=== PATIENT | female | born 1940 | race Caucasian/White ===

== ENCOUNTER → 2018-02-25 14:46 | Outpatient (CLI) | payer MEDICARE, OTHER, SELFPAY ==
[2018-02-25 17:58] LABS: CRP < 2.90 mg/L (0.0-3.0)
[2018-03-02 16:12] LABS: Endomysial Antibody IgA Negative (Negative)
[2018-03-03 17:12] LABS: Immunoglobulin A 111 mg/dL (64-422); t-Transglutaminase IgA <2 U/mL (0-3)
== END ==
PROVIDERS: Family Provider Family Medicine; PCP Family Medicine; Visit Provider Internal Medicine Gastroenterology
DX: R19.7 Diarrhea, unspecified (principal)
CPT/HCPCS: 36415; 82784; 83516; 86140; 86255

== ENCOUNTER 2023-09-27 07:58 | Day surgery (SDC) | payer MEDICARE, SELFPAY ==
[2023-09-27 08:39] VITALS: BP 159/62; PULSE 59; RESP 16; TEMP 36.1; O2SAT 100; BMI 30.7
[2023-09-27] MEDS: Lactated Ringers 1,000 ML 15 ML IV (08:48)
--- NOTE | 2023-09-27 09:31 | RAD_ITS ---
PROCEDURE: T8-T9 epidural injection. DATE OF EXAMINATION: September 27, 2023. INDICATION: Female, 83 years old. Back pain. FLUOROSCOPY TIME (if supplied): (10 seconds) minutes/seconds. 5.1 mGy. 4 spot images were obtained. RAD/Spine 1 View Any Level IMPRESSION: Intraoperative imaging provided for T8-T9 epidural injection. Electronically Signed: Anjel Cason MD at 12:15 EST ,
[2023-09-27] MEDS: MethylPREDNISolone Acetate 80 MG/ML Vial (09:36)
--- NOTE | 2023-09-27 09:38 | OP.PCM_ITS ---
Report of Operation Date of Procedure: 09/27/23 Description of Surgical Findings:: PREOPERATIVE DIAGNOSES: Thoracic radiculopathy, thoracic degenerative disc disease, thoracic spinal stenosis POSTOPERATIVE DIAGNOSES: Thoracic radiculopathy, thoracic degenerative disc disease, thoracic spinal stenosis PROCEDURE PERFORMED: Thoracic epidural steroid injection interlaminar at T8-9 under fluoroscopic guidance ANESTHESIA: MAC BLOOD LOSS: Minimal. COMPLICATIONS: None. DESCRIPTION OF PROCEDURE: History and physical of today was reviewed. Risks and benefits of the procedure were explained. The patient understood and agreed to proceed. Informed consent was obtained. IV inserted per routine protocol. The patient was taken to the operating room and placed in the prone position with a pillow positioned underneath the chest. The mid back area was prepped and draped in a sterile fashion using iodine x3. Under fluoroscopy guidance on an AP view, the T8-9 interlaminar space was identified. The skin and subcutaneous tissue was anesthetized with approximately 3 mL of 1% lidocaine using a 25-gauge regular needle. Under direct visualization on fluoroscopy, on AP view, using a 20-gauge 3-1/2-inch Tuohy needle, the needle was advanced via the skin. The tip of the needle was maneuvered and directed towards the interlaminar space at T8-9 loss of resistance technique was carried to air. Loss of resistance technique was encountered. Once encountered, after negative aspiration for blood and CSF, a total of 3 mL of contrast was injected to confirm correct placement of the needle as well as cephalocaudal spread of the contrast. Confirmation was obtained on AP as well as lateral view. After repeated negative aspiration and confirmation, a total of 6 mL of preservative- free normal saline and 80 mg of Depo-Medrol was injected easily. The needle was then removed intact. The patient experienced no sign or symptoms of intrathecal or intravascular injection. The patient experienced no paresthesia. The procedure was completed without any apparent difficulty or any complications. The patient appeared to tolerate it well. ASSESSMENT AND PLAN: This is an 83-year-old female with thoracic radiculopathy, thoracic degenerative disc disease, thoracic spinal stenosis status post thoracic epidural steroid injection interlaminar at T8-9 under fluoroscopic guidance, patient will continue her current medications, patient will follow up in approximately 2 weeks for reevaluation.
[2023-09-27 09:45] VITALS: BP 127/62; BP 159/62; PULSE 63; RESP 16; TEMP 36.4; O2SAT 99
[2023-09-27 09:50] VITALS: BP 129/67; BP 159/62; PULSE 61; RESP 16; O2SAT 100
[2023-09-27 09:55] VITALS: BP 131/56; BP 159/62; PULSE 60; RESP 16; O2SAT 99
[2023-09-27 10:00] VITALS: BP 129/60; BP 159/62; PULSE 60; RESP 16; TEMP 36.4; O2SAT 97
[2023-09-27 10:16] VITALS: BP 159/62
== END 2023-09-27 10:37 | disposition home or self-care (01) ==
LOC: SDC 08:06 → AC 08:06
PROVIDERS: Referring Provider Family Medicine; Visit Provider Anesthesiology Pain Medicine
PROC: 3E0S3BZ Introduction of Anesthetic Agent into Epidural Space, Percutaneous Approach (ICD-10-PCS; CPT 62321; principal; 2023-09-27 09:45)
DX: M51.14 Intervertebral disc disorders with radiculopathy, thoracic region (principal); J44.9 Chronic obstructive pulmonary disease, unspecified; I27.20 Pulmonary hypertension, unspecified; M48.04 Spinal stenosis, thoracic region; E78.00 Pure hypercholesterolemia, unspecified; Z79.01 Long term (current) use of anticoagulants; Z79.899 Other long term (current) drug therapy; Z79.890 Hormone replacement therapy; Z95.0 Presence of cardiac pacemaker
CPT/HCPCS: 62321; 01992; 64490; 72020; J7120

== ENCOUNTER 2023-11-08 08:03 | Day surgery (SDC) | payer MEDICARE, SELFPAY ==
[2023-11-08] VITALS (7 sets, daily range): BP systolic 97–161; BP diastolic 62–72; PULSE 60–67; RESP 16; TEMP 36.1–36.6; O2SAT 97–100; BMI 30.3
[2023-11-08] MEDS: Lactated Ringers 1,000 ML 15 ML IV (08:25)
--- NOTE | 2023-11-08 09:50 | RAD_ITS ---
PROCEDURE: Right thoracic radiofrequency ablation. DATE OF EXAMINATION: November 08, 2023. INDICATION: Female, 83 years old. Chronic back pain. FLUOROSCOPY TIME (if supplied): (16 seconds) minutes/seconds. 3.51 mGy. 6 images were submitted. RAD/Thoracic Spine Min 4 Views IMPRESSION: Intraoperative imaging provided for right-sided thoracic radiofrequency ablation. Electronically Signed: Anjel Cason MD at 11:58 EDT ,
[2023-11-08] MEDS: Lidocaine 1% (30 ml sdv) 30 ML Vial (09:55)
[2023-11-08] MEDS: MethylPREDNISolone Acetate 40 MG/ML Vial (09:56)
--- NOTE | 2023-11-08 10:04 | OP.PCM_ITS ---
Report of Operation Date of Procedure: 11/08/23 Description of Surgical Findings:: PREOPERATIVE DIAGNOSES: 1. Thoracic spondylosis. 2. Thoracic degenerative disk disease. 3. Thoracic facet arthropathy. POSTOPERATIVE DIAGNOSES: 1. Thoracic spondylosis. 2. Thoracic degenerative disk disease. 3. Thoracic facet arthropathy. PROCEDURE PERFORMED: Right-sided thoracic radiofrequency ablation of the medial branch at T6, T7, T8, and T9 ANESTHESIA: MAC. BLOOD LOSS: Minimal. COMPLICATIONS: None. DESCRIPTION OF PROCEDURE: History and physical of today was reviewed. Risks and benefits of the procedure were explained. The patient understood and agreed to proceed. Informed consent was obtained. IV inserted per routine protocol. The patient was taken to the operating room and placed in the prone position with a pillow positioned underneath the chest. The mid back area was prepped and draped in a sterile fashion using iodine x3. Under fluoroscopy guidance in an oblique view, the T6 through T9 vertebral bodies were visualized. The skin and subcutaneous tissue was anesthetized with approximately 10 mL of 1% lidocaine using a 25-gauge regular needle. Under direct visualization on fluoroscopy at approximately 25-degree angle, starting on the right T9, ending on the right T6, passing through the T7 and T8, using a 20-gauge 10-cm with a 10 -mm curved active-tip radiofrequency ablation needle, the needle was passed through the skin. The tip of the needle was maneuvered and directed towards the epiphyseal junction of each corresponding vertebra. Once the tip of the needle was at the vicinity of the medial branch and in contact with the bone, the needle was pulled approximately 2 mm off the bone. The stylette of each needle was then removed. After negative aspiration of blood or CSF and confirmation on AP, oblique as well as lateral view, the radiofrequency ablation probe was then inserted at each level. Impedance was then recorded at T6 to be 269 ohm, at T7 to be 227 ohm, at T8 to be 252 ohm, and at T9 to be 261 ohm. Motor-evoked potential was then initiated to 2 HZ and 1.5 volts without any motor response at each corresponding level. The probe was then removed intact and a total of 6 ml of preservative-free 2% lidocaine was injected in divided doses between those four levels after negative aspiration of blood or CSF. The radiofrequency ablation probe was then reinserted. After confirmation on AP, oblique as well as lateral view, radiofrequency ablation was then initiated to 80 degree Celsius for 90 second at each level. Once concluded, the probe was then removed intact. A total of 6 ml of preservative-free 0.25% Marcaine with 40 mg of Depo-Medrol was injected in divided doses between those four levels. The needles were then removed intact. The patient experienced no sign or symptoms of intrathecal or intravascular injection. The patient experienced no paresthesia. Assessment and plan: This is an 83-year-old female with thoracic spondylosis, thoracic degenerative disc disease, thoracic facet arthropathy status post right-sided thoracic radiofrequency ablation of the medial branch at T6-T9, patient will continue her current medications, patient will follow approximately 2 weeks for reevaluation.
== END 2023-11-08 10:53 | disposition home or self-care (01) ==
LOC: SDC 08:04 → AC 08:06
PROVIDERS: Referring Provider Anesthesiology Pain Medicine; Visit Provider Anesthesiology Pain Medicine
PROC: (CPT 64633; principal; 2023-11-08 09:25)
DX: M47.24 Other spondylosis with radiculopathy, thoracic region (principal); J44.9 Chronic obstructive pulmonary disease, unspecified; M51.14 Intervertebral disc disorders with radiculopathy, thoracic region; M51.24 Other intervertebral disc displacement, thoracic region; Z79.01 Long term (current) use of anticoagulants; Z79.890 Hormone replacement therapy; Z79.899 Other long term (current) drug therapy; Z87.891 Personal history of nicotine dependence; I10 Essential (primary) hypertension; G47.419 Narcolepsy without cataplexy; E07.9 Disorder of thyroid, unspecified
CPT/HCPCS: 64633; 64634 ×2; 72074; 76000; J7120; J2405

== ENCOUNTER 2023-12-27 07:50 | Day surgery (SDC) | payer MEDICARE, SELFPAY ==
[2023-12-27] VITALS (8 sets, daily range): BP systolic 109–166; BP diastolic 54–68; PULSE 60–62; RESP 16; TEMP 35.9–36.5; O2SAT 98–100; BMI 30.3
[2023-12-27] MEDS: Lactated Ringers 1,000 ML 15 ML IV (08:22)
--- NOTE | 2023-12-27 09:22 | RAD_ITS ---
EXAM: FL Fluoro Guide Needle Placement HISTORY: LEFT THORACIC FACET STEROID INJECTION T7,T8,T9,T10 COMPARISON: None Technique: Fluoroscopy provided for facet joint steroid injection by Dr. Sanches. 4 C-arm images obtained, 9.5 seconds of fluoroscopy provided dose of 4.88 mGy FINDINGS: No complications are noted during fluoroscopy provided for facet joint injection by Dr. Sanches RAD/Thoracic Spine Min 4 Views IMPRESSION: Fluoroscopy provided for facet joint steroid injection by Dr. Sanches Electronically Signed: Murphy Carr MD at 12:11 EDT ,
[2023-12-27] MEDS: Lidocaine 1% (5 ml sdv) 5 ML Vial (09:28)
[2023-12-27] MEDS: MethylPREDNISolone Acetate 80 MG/ML Vial (09:28)
--- NOTE | 2023-12-27 09:51 | PCM.OPRPT ---
Report of Operation Date of Procedure: 12/27/23 Description of Surgical Findings:: PREOPERATIVE DIAGNOSIS: Thoracic spondylosis, thoracic facet arthropathy, thoracic degenerative disc disease POSTOPERATIVE DIAGNOSIS: Thoracic spondylosis, thoracic facet arthropathy, thoracic degenerative disc disease PROCEDURE PERFORMED: Left sided thoracic facet steroid injection, T7, T8, T9, T10 ANESTHESIA: MAC. BLOOD LOSS: Minimal. COMPLICATIONS: None. DESCRIPTION OF PROCEDURE: History and physical of today was reviewed. Risks and benefits of the procedure were explained. The patient understood and agreed to proceed. Informed consent was obtained. IV inserted per routine protocol. The patient was taken to the operating room and placed in the prone position with a pillow positioned underneath the chest. The mid back area was prepped and draped in a sterile fashion using iodine x3. Under fluoroscopy guidance on AP view, the T7 through T10 vertebral bodies were visualized. The skin and subcutaneous tissue was anesthetized with approximately 5 mL of 1% lidocaine using a 25-gauge regular needle. Under direct visualization on fluoroscopy, at approximately 15-degree angle, starting on the left T7, ending on the left T10, passing through the T8 and T9, using a 25-gauge 3-1/2-inch spinal needle, the needle was passed through the skin. The tip of the needle was maneuvered and directed towards the epiphyseal junction of each corresponding vertebra. Once the tip of the needle was at the vicinity of the medial branch and in contact with the bone, the needle was pulled approximately 2 mm off the bone. After negative aspiration for blood or CSF and confirmation on AP as well as oblique view and lateral view, a total of 6 mL of preservative-free 0.25% Marcaine with 80 mg of Depo-Medrol was injected in divided doses between those four levels. The needles were then removed intact. The patient experienced no sign or symptoms of intrathecal or intravascular injection. The patient experienced no paresthesia. The procedure was completed without any apparent difficulty or any complications. The patient appeared to tolerate it well. ASSESSMENT AND PLAN: This is an 83-year-old female with thoracic spondylosis, thoracic degenerative disc disease, thoracic facet arthropathy status post left-sided thoracic facet steroid injection T7-T10, patient will continue her current medications, patient will follow in approximately 2 weeks for reevaluation.
== END 2023-12-27 10:34 | disposition home or self-care (01) ==
LOC: SDC 07:52 → AC 07:53
PROVIDERS: Referring Provider Anesthesiology Pain Medicine; Visit Provider Anesthesiology Pain Medicine
PROC: 3E0R3BZ Introduction of Anesthetic Agent into Spinal Canal, Percutaneous Approach (ICD-10-PCS; CPT 62281; principal; 2023-12-27 09:25)
DX: M47.814 Spondylosis without myelopathy or radiculopathy, thoracic region (principal); I27.20 Pulmonary hypertension, unspecified; J44.9 Chronic obstructive pulmonary disease, unspecified; M51.34 Other intervertebral disc degeneration, thoracic region; I10 Essential (primary) hypertension; E78.00 Pure hypercholesterolemia, unspecified; E07.9 Disorder of thyroid, unspecified; Z79.01 Long term (current) use of anticoagulants; Z79.890 Hormone replacement therapy; Z79.899 Other long term (current) drug therapy; Z95.0 Presence of cardiac pacemaker
CPT/HCPCS: 64491; 64492; 64490; 72074; J7120